=== PATIENT | male | born 1990 | race Caucasian/White ===

== ENCOUNTER 2021-06-06 21:37 | Emergency (ER) | payer OTHER ==
[2021-06-06] MEDS ORDERED: AUGMENTIN 875-1 EACH PO (22:46)
== END 2021-06-06 22:57 | disposition home or self-care (01) ==
LOC: ER1 21:37
DX: S61.051A Open bite of right thumb without damage to nail, initial encounter (principal); S61.452A Open bite of left hand, initial encounter; W54.0XXA Bitten by dog, initial encounter; Z23 Encounter for immunization
CPT/HCPCS: 73140; 90471; 90715; 99283